=== PATIENT | male | born 1980 | race American Indian/Alaskan Native ===

== ENCOUNTER 2019-09-15 07:01 | Emergency (ER) | payer SELFPAY ==
--- NOTE | 2019-09-15 08:29 | Emergency Department Report ---
HPI - General Chief Complaint: Allergic Reaction Time Seen by Provider: 09/15/19 08:06 - HPI HPI: 39-year-old -[place] male presents to the emergency department with complaint of a 2 to 3-day history of some facial swelling and pain. He says that it started off with some type of bump in his nose that he was picking at and scratched. Since then there has been swelling just under the nose to the upper lip and a little bit to the cheeks. He has not taken anything for his symptoms prior to presentation. Denies any fever. Patient presents with elevated blood pressure and admits to a history of hypertension but says he has not taken medication in many years. He previously was on lisinopril and said he had some type of allergic reaction and never took it again or followed up. He does not have a primary care physician. He denies any difficulty swallowing, shortness of breath, swelling of the tongue or throat, chest pain, headache. No recent travel or sick contacts at home. ED Past Medical Hx - Past Medical History Previous Medical History?: Yes Hx Hypertension: Yes - Surgical History Past Surgical History?: No - Social History Smoking Status: Current Every Day Smoker Substance Use Type: Alcohol - Medications Home Medications: Home Medications Medication Instructions Recorded Confirmed Last Taken Type Amlodipine Besylate [Norvasc] 5 mg PO QDAY #30 tablet 09/15/19 Unknown Rx Clindamycin [Clindamycin CAP] 300 mg PO Q6H #28 capsule 09/15/19 Unknown Rx Ibuprofen [Motrin 800 MG tab] 800 mg PO Q8HR PRN #20 tablet 09/15/19 Unknown Rx ED Review of Systems ROS: Stated complaint: FACIAL SWELLING W/PAIN Other details as noted in HPI Comment: All other systems reviewed and negative Constitutional: denies: chills, fever ENT: other (Facial swelling and pain). denies: throat pain Respiratory: denies: shortness of breath, wheezing Cardiovascular: denies: chest pain, palpitations Gastrointestinal: denies: abdominal pain, vomiting Skin: other (nasal abrasion). denies: rash Neurological: denies: headache, weakness Physical Exam - Physical Exam Vital Signs: Vital Signs 09/15/19 07:15 Temperature 98.9 F Pulse Rate 117 H Respiratory 16 Rate Blood Pressure 179/113 O2 Sat by Pulse 99 Oximetry Physical Exam: GENERAL: The patient is well-developed well-nourished. HENT: Normocephalic. Atraumatic. Patient has moist mucous membranes. Oropharynx is clear. There is no tenderness to palpation along the teeth or gumline. There is some tenderness to palpation to the left upper lip with some mild swelling of the lip as well. No erythema. There is a small polyp or early abscess in the left nasal passage that is also tender to palpation. No drooling or trismus. EYES: Extraocular motions are intact. Pupils equal reactive to light bilaterally. NECK: Supple. Trachea is midline. CHEST/LUNGS: Clear to auscultation. There is no respiratory distress noted. HEART/CARDIOVASCULAR: Regular. There is no tachycardia. ABDOMEN: Abdomen is soft, nontender. Patient has normal bowel sounds. SKIN: Skin is warm and dry. NEURO: The patient is awake, alert, and oriented. The patient is cooperative. The patient has no focal neurologic deficits. Normal speech. MUSCULOSKELETAL: There is no tenderness or deformity. There is no evidence of acute injury. ED Course Vital Signs 09/15/19 07:15 Temperature 98.9 F Pulse Rate 117 H Respiratory 16 Rate Blood Pressure 179/113 O2 Sat by Pulse 99 Oximetry ED Medical Decision Making - Lab Data Result diagrams: 09/15/19 08:22 09/15/19 08:22 - Medical Decision Making This patient presents to the emergency department with a 2 to 3-day history of some painful swelling to the upper lip just under the nose and inside of the left nostril. This appears more consistent with a soft tissue infection and any allergic reaction. He has not had any recent medications and does not appear to have had any particular food that may have caused the reaction. Also the patient says that this began after he caused an abrasion to the bump inside of his left nostril. He does have some hypertension but is afebrile. Labs are unremarkable including CBC and metabolic panel. Patient was given a dose of clindamycin and a dose of antihypertensive medication. His blood pressure came down to a much more reasonable level. I recommended to the patient that we get a CT scan of the facial bones without contrast to evaluate for my suspicion of abscess. At first the patient agreed but then eventually refused this imaging. The patient will be given a prescription for blood pressure medication and antibiotics. He has been given referrals for ENT and oral maxillofacial surgery for follow-up. He will return to the emergency department with any worsening of his symptoms or with any acute distress. - Differential Diagnosis Dental abscess, soft tissue abscess, cellulitis Critical Care Time: No Critical care attestation.: If time is entered above; I have spent that time in minutes in the direct care of this critically ill patient, excluding procedure time. ED Disposition Clinical Impression: Facial abscess Hypertension Qualifiers: Hypertension type: essential hypertension Qualified Code(s): I10 - Essential (primary) hypertension Disposition: TO HOME OR SELFCARE Is pt being admited?: No Condition: Stable Instructions: Abscess (ED), Hypertension (ED) Additional Instructions: Take the antibiotics as prescribed. Return to the emergency immediately with any worsening of your symptoms including any increased swelling, increased pain, new pain, development of fever, or with any acute distress. I have given you a referral for some local ENT physicians, and oral maxillofacial surgeon, and the [place] outpatient clinic that has these specialists as well. Prescriptions: Clindamycin [Clindamycin CAP] 300 mg PO Q6H #28 capsule Ibuprofen [Motrin 800 MG tab] 800 mg PO Q8HR PRN #20 tablet PRN Reason: Pain , Severe (7-10) Amlodipine Besylate [Norvasc] 5 mg PO QDAY #30 tablet Referrals: PRIMARY CARE, [Primary Care Provider] - 3-5 Days ADRIEN GONZALEZ MD [Staff Physician] - FIDE OLIVER MD [Staff Physician] - DIRK FAITH DDS [Staff Physician] - [place] [facility] [Outside] - [place] Time of Disposition: 10:57
[2019-09-15 08:41] LABS: Basophils % (Auto) 0.2 % (0.0-1.8); Hemoglobin 14.1 gm/dl (11.8-15.2); Lymphocytes # (Auto) 0.9 K/mm3 (1.2-5.4); Lymphocytes % (Auto) 13.1 % (13.4-35.0); Mean Corpuscular HGB Conc 35 % (32-34); Mean Corpuscular Volume 87 fl (84-94); Monocytes # (Auto) 0.8 K/mm3 (0.0-0.8); Monocytes % (Auto) 11.8 % (0.0-7.3); Platelet Count 255 K/mm3 (140-440); Red Blood Count 4.73 M/mm3 (3.65-5.03); Red Cell Distribution Width 16.2 % (13.2-15.2)
[2019-09-15 08:51] LABS: BUN/Creatinine Ratio 11; Blood Urea Nitrogen 8 mg/dL (9-20); Hemolysis Index 20
[2019-09-15] MEDS ORDERED: KETOROLAC 30 MG/1 ML INJ IV ONE (09:21)
[2019-09-15 11:18] VITALS: BP 153/78
== END 2019-09-15 11:16 | disposition home or self-care (01) ==
LOC: ED 07:01
DX: L02.01 Cutaneous abscess of face (principal); I10 Essential (primary) hypertension; F17.200 Nicotine dependence, unspecified, uncomplicated; Z79.899 Other long term (current) drug therapy
CPT/HCPCS: 36415; 80048; 85025; 96365; 96375; 99284; J1885